=== PATIENT | female | born 1970 | race Caucasian/White ===

== ENCOUNTER 2016-06-20 09:50 | Emergency (ER) | payer OTHER ==
--- NOTE | 2016-06-20 15:05 | ED CLINICAL REPORT ---
Clinical Report - Physicians/Mid Levels [facility] [address] [place] [address] 06/20/2016 9:51 Patient: AUTUMN RIVERA Time Seen: 10:02; initial patient contact. Arrived- By private vehicle. Historian- patient. HISTORY OF PRESENT ILLNESS Chief Complaint: DIZZINESS and NEAR-SYNCOPE. Described as a sense of rotation and feeling off balance and light-headed. Severity described as moderate at its maximum. When seen in the E.D., it was almost gone. Modifying factors- worsened by standing up and changing position. Relieved by rest. This started yesterday and is still present (persistent). It has been intermittent. No nausea, vomiting, hearing loss, tinnitus or ear pain. Similar symptoms previously: None. Recent medical care: The patient was seen recently in a clinic. ( For Bronchitis). REVIEW OF SYSTEMS No headache, double vision, weakness, fainting episodes or head injury. No chest pain, palpitations, fever, difficulty breathing or chills. She has had difficulty walking. All systems otherwise negative, except as recorded above. PAST HISTORY ( Cirrhosis). Additional Surgeries: no known surgeries. Medications: Spironolactone Oral. Furosemide Oral. Lyrica Oral. Allergies: Codeine. Contrast. Motrin. SOCIAL HISTORY Current every day smoker. Alcohol use. Patient is a recovering alcoholic. History of drug use: marijuana. ADDITIONAL NOTES The nursing notes have been reviewed with agreement regarding the chief complaint, PMH and patient medications and allergies. PHYSICAL EXAM Vital Signs: 06/20/2016 09:58 BP: 102/48. HR: 81. RR: 18. O2 saturation: 100%. Temp: 98.2 F. Have been reviewed. Hypotensive. Postural vitals abnormal. Heart rate normal. Respiratory rate normal. Temperature normal. Oxygen saturation normal. Appearance: Alert. No acute distress. Eyes: Pupils equal, round and reactive to light. No nystagmus. Extraocular movements normal. ENT: Normal ENT inspection. Moist mucous membranes. CVS: Normal heart rate and rhythm. Heart sounds normal. Respiratory: No respiratory distress. Breath sounds normal. Skin: Skin warm and dry. Normal skin color. No rash. Normal skin turgor. Extremities: Extremities exhibit normal ROM. No calf tenderness. No lower extremity edema. Neuro: Alert. Oriented X 3. Mood/affect normal. Speech normal. Cranial nerves normal (as tested). No cerebellar findings. No motor deficit. No sensory deficit. LABS, X-RAYS, AND EKG Laboratory Tests: UA-Culture if indicated: (HELGA: 06/20/2016 10:50) ( [facility] 11[facility]17) Final results Test Result Flag Units (Reference) URINE COLOR YELLOW URINE APPEARANCE CLEAR URINE GLUCOSE TRACE (NEGATIVE) URINE BILIRUBIN NEGATIVE (NEGATIVE) URINE KETONE NEGATIVE (NEGATIVE) URINE SPECIFIC GRAVITY <= 1.005 L (1.010-1.030) URINE PH 7.0 (5.0-8.0) URINE PROTEIN NEGATIVE (NEGATIVE) URINE UROBILINOGEN 0.2 EU/dL (0.2-1.0) URINE NITRITE NEGATIVE (NEGATIVE) URINE BLOOD NEGATIVE (NEGATIVE) URINE LEUK ESTERASE NEGATIVE (NEGATIVE) URINE RBC RARE rbc/hpf (0-1) URINE WBC RARE wbc/hpf (0-1) URINE EPITHELIAL CELLS 1-3 EPI/hpf (0-5) URINE BACTERIA TRACE (<1+) (NONE SEEN) URINE COMMENT CULT NOT INDICATED URINE CULTURES ARE SET-UP BASED ON THE FOLLOWING CRITERIA:POSITIVE NITRITEPOSITIVE LEUKOCYTE ESTERASEGREATER THAN 10 WHITE BLOOD CELLSMODERATE (2+) OR GREATER BACTERIA Urine: (HELGA: 06/20/2016 10:50) ( [facility] 11:13) Final results Test Result Flag Units (Reference) URINE NEGATIVE CBC w Diff: (HELGA: 06/20/2016 10:30) ( [facility] 06/20/2016 10:51) Final results Test Result Flag Units (Reference) WHITE BLOOD COUNT 10.1 K/uL (4.5-11.5) RED BLOOD COUNT 4.66 M/uL (4.00-5.20) HEMOGLOBIN 14.7 gm/dL (12.0-16.0) HEMATOCRIT 43.7 % (36.0-46.0) MEAN CELL VOLUME 94 fL (80-100) MEAN CORPUSCULAR HGB 32 pg (26-34) MEAN CORPUSCULAR HGB CONC 34 g/dL (31-37) RED CELL DISTRIBUTION WIDTH 12.8 % (11.6-14.8) PLATELET COUNT 178 K/uL (150-400) LYMPH % 21.6 L % (25-40) MONO % 3.1 % (3-14) GRANULOCYTE % 75.3 (53-90) Urine Drug Screen: (HELGA: 06/20/2016 10:50) ( [facility] 06/20/2016 11:29) Final results Test Result Flag Units (Reference) AMPHETAMINE/METHAMPHETAMINE NEGATIVE (NEGATIVE) BARBITURATE NEGATIVE (NEGATIVE) BENZODIAZEPINE NEGATIVE (NEGATIVE) CANNABINOID NEGATIVE (NEGATIVE) COCAINE NEGATIVE (NEGATIVE) ECSTASY NEGATIVE (NEGATIVE) METHADONE NEGATIVE (NEGATIVE) OPIATE NEGATIVE (NEGATIVE) The urine drug screen is a qualitative screening test fordrug overdose and abuse. All screen results should beconsidered as presumptive.Drugs screened for are as follows:BenzodiazepinesCocaineAmphetamines/MetamphetaminesTHC (Tetrahydrocannabinol)OpiatesBarbituratesEcstasyMethadonePositive results are unconfirmed. For confirmation, notifythe lab for the specimen to be sent to the reference lab.All confirmations must be performed by a differentmethodology.The ingestion of natural herbal and plant productscontaining Ephedra/Ephedra metabolites can produce in urineone or more substances capable of cross reacting withamphetamine/methamphetamine immunoassays. These testsprovide a preliminary result only. A more specificalternative chemical method must be used to obtain aconfirmed analytical result. BNP: (HELGA: 06/20/2016 10:30) ( Msg[facility]cv[facility] 06/20/2016 11:13) Final results Test Result Flag Units (Reference) B-TYPE NATRIURETIC PEPTIDE 5.7 pg/ml (5-100) CMP: (HELGA: 06/20/2016 10:30) ( MsgRcvd 06/20/2016 11:09) Final results Test Result Flag Units (Reference) GLUCOSE 154 H mg/dL (70-110) BUN 10 mg/dL (7-18) CREATININE 0.7 mg/dL (0.6-1.3) Estimated GFR >60 mL/min Estimated GFR- >60 mL/min Note: Persistent reduction over 3 months in eGFR<60 mL/min/1.73 m2 defines CKD. Patients with eGFR values>=60 mL/min/1.73 m2 may also have CKD if evidence ofpersistent proteinuria. Additional information may be foundat www.kidney.org. SODIUM 140 mmol/L (136-145) POTASSIUM 3.5 mmol/L (3.5-5.1) CHLORIDE 103 mmol/L (98-107) CARBON DIOXIDE 26 mmol/L (21-32) CALCIUM 9.0 mg/dL (8.5-10.1) TOTAL PROTEIN 7.2 g/dL (6.4-8.2) ALBUMIN 3.9 g/dL (3.3-5.0) BILIRUBIN, TOTAL 0.7 mg/dL (0.0-1.0) ALKALINE PHOSPHATASE 68 U/L (46-116) AST (SGOT) 19 U/L (15-37) ALT (SGPT) 31 U/L (12-78) . PROGRESS AND PROCEDURES Course of Care: Evaluation after multiple exams and IV fluids. The patient's symptoms are now gone. Physical exam findings are improved. Disposition: Discharged home in good and improved condition. Condition: good. CLINICAL IMPRESSION Postural hypotension. INSTRUCTIONS Your Current Medications: CHANGE THE FOLLOWING MEDICATIONS TO: Furosemide Oral : 40 mg daily, Re-start tomorrow, 1/2 tab. Spironolactone Oral : 100 mg daily, Re-start tomorrow, 1/2 tab. CONTINUE TAKING THE FOLLOWING MEDICATIONS: Lyrica Oral : 450mg daily. Follow-up: Follow up with your doctor in about two days. Call for an appointment. Blood pressure screening was not performed during this visit because the patient has an active diagnosis of hypertension. (Electronically signed by Jaciel Ch Dr. 06/20/2016 15:11)
--- NOTE | 2016-06-20 15:05 | ED ORDER SUMMARY ---
..... Patient: AUTUMN RIVERA OrderSheet [facility] VisitID: [id number] [address] [place] [address] 45y, F Registration Date/Time: 06/20/2016 ORDER SHEET Weight: 67.1 kg (stated) Allergies: Contrast, Motrin, Codeine GENERAL ORDERS: CBC w Diff Urgent (10:06/20/2016 Kristofer Varner) (Ack 10:27 LNations ER Tech1) (10:59 JSanders R.N.) CMP Urgent (10:06/20/2016 Kristofer Varner) (Ack 10:27 LNations ER Tech1) (10:59 JSanders R.N.) UA-Culture if indicated Urgent (10:06/20/2016 Kristofer Varner) (Ack 10:27 LNations ER Tech1) (10:59 JSanders R.N.) Urine Urgent (10:06/20/2016 Kristofer Varner) (Ack 10:27 LNations ER Tech1) (10:59 JSanders R.N.) Urine Drug Screen Urgent (10:06/20/2016 Kristofer Varner) (Ack 10:27 LNations ER Tech1) (10:59 JSanders R.N.) BNP Urgent (10:06/20/2016 Kristofer Varner) (Ack 10:28 LNations ER Tech1) (10:59 JSanders R.N.) MEDICATION ORDERS: IV FLUIDS: IV Saline Lock (10:06/20/2016 Kristofer Varner) (Ack 10:27 JBoardley R.N.) (10:39 JSanders R.N.) IV NS : initial bolus none -, then 1000 mL/hr for X1 (NOW) (11:18 06/20/2016 Kristofer Varner) (Ack 11:28 JBoardley R.N.) (11:44 JSanders R.N.) IV NS : initial bolus none -, then 1000 mL/hr for X1 (NOW); Routine (13:30 06/20/2016 Brunilda R.N. verbal order read back to Kristofer Varner) (13:31 Brunilda Whitaker) ORDER SHEET NOTES: [Electronically signed by Jaciel Ch Dr. (15:11 06/20/2016)] [Electronically signed by Tristan Quintero R.N. (15:53 06/20/2016)] [Electronically locked/signed by Tristan Quintero R.N. (15:53 06/20/2016)]
--- NOTE | 2016-06-20 15:05 | ED NURSING NOTES ---
Clinical Report - Nurses [facility] [address] [place] [address] 06/20/2016 9:51 Patient: AUTUMN RIVERA TRIAGE Triage time 09:58. Acuity: LEVEL 3. Chief Complaint: DIZZINESS. 09:59 06/20/16. 09:59 06/20/16. Alert. No acute distress. ( Pt states she feels dizzy and sore. Pt was seen at [facility] last week for CT scan of liver. Pt states she had an allergic reaction to the contrast. Pt was recently dx with bronchitis and finished her Z-pack yesterday). SRINIVASAN COMA SCORE: [place] Coma Scale: 15- eyes open spontaneously (4); best verbal response- oriented x 4 (5); best motor response- obeys commands (6). --10:03 Tristan Quintero R.N. 09:58 06/20/16. BP: 102/48. HR: 81. RR: 18. O2 saturation: 100% on room air. Temp: 98.2 F (oral). --10:03 Tristan Quintero R.N. SEPSIS SCREEN: Sepsis Screen. Negative (no infection suspected/documented). --10:05 Tristan Quintero R.N. Weight: 67.1 kg stated. Height/Length: 61 inches Per Patient. BMI: 28. --09:58 Tristan Quintero R.N. Medications Lyrica Oral 450mg, daily. --10:02 Tristan Quintero R.N. Furosemide Oral 40 mg, daily. --10:02 Tristan Quintero R.N. Spironolactone Oral 100 mg, daily. --10:02 Tristan Quintero R.N. The following entry was struck and corrected by Tristan Quintero R.N., 12:00 (06/20/16) Reason for correction - other(correction). <<STRICKEN ENTRY-- Lyrica Oral. --10:02 Boardley, Tristan, R.N. --END STRIKE>> The following entry was struck and corrected by Tristan Quintero R.N., 12:00 (06/20/16) Reason for correction - other(correction). <<STRICKEN ENTRY-- Spironolactone Oral. --10:02 Tristan Quintero R.N. --END STRIKE>> The following entry was struck and corrected by Tristan Quintero R.N., 12:00 (06/20/16) Reason for correction - other(correction). <<STRICKEN ENTRY-- Furosemide Oral. --10:02 Tristan Quintero R.N. --END STRIKE>>. Medication/allergy information source: the patient. --10:03 Tristan Quintero R.N. Allergies Contrast. --10:03 Tristan Quintero R.N. Motrin. --10:03 Tristan Quintero R.N. Codeine. --10:03 Tristan Quintero R.N. History Arrived by private vehicle. Historian: patient. Unaccompanied. Primary physician (ANNELISE ROMEO). 09:59 06/20/16. 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 PAST MEDICAL HX: Immunizations: up-to-date. Last normal menstrual period- "I don't have one I'm on Mirana". SOCIAL HX: Current every day light tobacco smoker (cigarette)- less than 1/2 a pack per day. Alcohol use. Patient is a recovering alcoholic. History of occasional drug use: marijuana. No infectious disease exposure. ABUSE ASSESSMENT: No report of abuse. FALL RISK ASSESSMENT: Fall risk assessment completed. No fall risk identified. NUTRITIONAL RISK ASSESSMENT: The nutritional risk assessment revealed no deficiencies. FUNCTIONAL ASSESSMENT: Functional assessment: no impairments noted. LEARNING NEEDS ASSESSMENT: The learning needs assessment revealed no barriers. SKIN INTEGRITY ASSESSMENT: Skin integrity risk assessment completed. No skin integrity risk identified. --10:03 Tristan Quintero R.N. Onset. (). --10:04 Tristan Quintero R.N. PROBLEMS: Cirrhosis. --10:03 Tristan Quintero R.N. ADDITIONAL SURGERIES: no known surgeries. Assessment 09:59 06/20/16. --10:03 Tristan Quintero R.N. Interventions 09:59 06/20/16. 09:59 06/20/16. ID and allergy band on patient. To treatment room. --10:03 Tristan Quintero R.N. PHYSICAL ASSESSMENT 10:04 06/20/16. GENERAL / NEURO / PSYCH: Alert. Oriented X 4. Appears in no acute distress. [place] Coma Scale: 15- eyes open spontaneously (4); best verbal response- oriented x 4 (5); best motor response- obeys commands (6). No cerebellar findings. Moves all extremities equally. No motor deficit. No sensory deficit. RESPIRATORY: Respirations not labored. CVS: Normal sinus rhythm noted. SKIN: Skin is warm and dry. --10:04 Tristan Quintero R.N. NURSING PROGRESS NOTES 10:06/20/16. The plan of care for this patient has been created. radiation monitor, pulse oximeter and NIBP monitor placed on patient; monitor alarms on. Patient gowned. Head of bed elevated. Reassurance given. Two patient identifiers checked. Call light placed in reach. Side rails up x 2. Bed placed in lowest position. Brakes of bed on. Brakes of chair on. --10:04 Tristan Quintero R.N. 10:06/20/16. Patient ready for evaluation- chart flagged and notification provided. --10:04 Tristan Quintero R.N. 10:34 06/20/2016 Site #1 started via IV in the right antecubital space with an 20g angiocath, with aseptic technique and good blood return; one attempt. Blood drawn: rainbow set. Labeled in the presence of the patient and sent to the lab. Saline lock flushed with 10 mL saline. --10:39 Shannon Dumont R.N. 10:42 06/20/16. --10:42 Shannon Dumont R.N. 10:40 06/20/16. BP: 99/57 (regular adult cuff) taken on the left arm, via an automated monitor, while lying. HR: 70. O2 saturation: 100% on room air. --10:42 Shannon Dumont R.N. 10:42 06/20/16. BP: 96/63 (regular adult cuff) taken on the left arm, while sitting. HR: 74. O2 saturation: 100% on room air. --10:43 Shannon Dumont R.N. 10:43 06/20/16. --10:43 Shannon Dumont R.N. 10:43 06/20/16. BP: 90/55 (regular adult cuff) taken on the left arm, while standing. HR: 88. O2 saturation: 100%. Additional comments: Patient states burred vision with standing. --10:45 Shannon Dumont R.N. 10:45 06/20/16. --10:45 Shannon Dumont R.N. 10:56 06/20/16. BP: 106/53 (regular adult cuff) taken on the left arm, while lying. HR: 76. O2 saturation: 100% on room air. --10:59 Shannon Dumont R.N. 10:58 06/20/16. Cardiac rhythm: normal sinus rhythm; (79). Patient ID band checked for patient name and birthdate: patient confirmed. Instructions provided to collect clean catch urine and patient verbalized understanding. Clean catch urine collected with return of yellow-colored clear urine; sample sent to lab for urinalysis and culture. Specimen labeled in the presence of the patient. --10:59 Shannon Dumont R.N. 10:59 06/20/16. Patient informed about reason for wait and about plan of care. --10:59 Shannon Dumont R.N. 11:03 06/20/16. ( Patient went to leave a UA in restroom and on the way back she felt dizzy and leaned against the wall to steady, used WC to bring back to room and got a set of vitals). --11:03 Shannon Dumont R.N. 11:44 06/20/2016 Started bag #1 1000 mL IV Fluids IV NS (Saline); at 999 mL/hr over 1 hour(s) via site #1 via IV pump. Allergies verified and confirmed 5 rights. IV patency established. IV site checked: no pain, redness, or swelling. IV flushed thoroughly pre- and post-medication administration. --11:44 Shannon Dumont R.N. 11:44 06/20/16. --11:44 Shannon Dumotn R.N. 11:44 06/20/16. BP: 102/57. HR: 72. RR: 16. O2 saturation: 100% on room air. --11:44 Shannon Dumont R.N. 11:59 06/20/16. BP: 101/44. HR: 73. RR: 12. O2 saturation: 100% on room air. --12:00 Tristan Quintero R.N. 12:00 06/20/16. Cardiac rhythm: normal sinus rhythm; (73). --12:00 Tristan Quintero R.N. 12:25 06/20/16. BP: 97/52. HR: 69. RR: 14. O2 saturation: 100% on room air. --12:26 Tristan Quintero R.N. 12:26 06/20/16. Cardiac rhythm: normal sinus rhythm. --12:26 Tristan Quintero R.N. 12:44 06/20/16. --12:44 Tristan Quintero R.N. 12:44 06/20/16. BP: 95/48. HR: 71. RR: 14. O2 saturation: 100% on room air. --12:44 Tristan Quintero R.N. 12:44 06/20/2016 IV Fluids IV NS Discontinued: bag #1 infused. Total amount infused: 1000 mL. IV patency established. IV site checked: no pain, redness, or swelling. IV flushed thoroughly. --12:44 Tristan Quintero R.N. 12:44 06/20/16. Cardiac rhythm: normal sinus rhythm; (71). --12:44 Tristan Quintero R.N. 12:47 06/20/16. Patient informed about reason for wait and about plan of care. --12:47 Tristan Quintero R.N. 12:47 06/20/16. ED physician notified about patient's status. --12:47 Tristan Quintero R.N. 13:03 06/20/16. BP: 99/48. HR: 84. RR: 12. O2 saturation: 100% on room air. --13:04 Tristan Quintero R.N. 13:04 06/20/16. Cardiac rhythm: normal sinus rhythm. --13:04 Tristan Quintero R.N. 13:31 06/20/2016 Started bag #1 1000 mL IV Fluids IV NS (Saline); at 1000 mL/hr over 1 hour(s) via site #1. Allergies verified and confirmed 5 rights. IV patency established. IV site checked: no pain, redness, or swelling. IV flushed thoroughly pre- and post-medication administration. Completed per protocol. --13:31 Tristan Quintero R.N. 14:04 06/20/16. ( patient reports bilat thigh pain, burning sensation 10/21 that has now gone away.). --14:04 Shannon Dumont R.N. 13:58 06/20/16. BP: 91/77. HR: 84. O2 saturation: 99% on room air. --14:04 Shannon Dumont R.N. 14:17 06/20/16. BP: 89/54. HR: 80. RR: 14. O2 saturation: 100% on room air. --14:17 Marva Ohara ( assisted pt. sitting on edge of bed and standing . Pt. states is not dizzy.). --15:11 Maria Victoria Phan ER Tech 14:59 06/20/2016 IV Fluids IV NS Discontinued: bag #2 infused. Total amount infused: 1000 mL. IV patency established. IV site checked: no pain, redness, or swelling. IV flushed thoroughly. --15:24 Tristan Quintero R.N. DISPOSITION / DISCHARGE 15:24 06/20/2016 Site #1 removed upon discharge. Catheter intact. --15:24 Tristan Quintero R.N. 15:25 06/20/16. Condition at departure: improved. The goals identified in the patient's plan of care were met. No learning barriers present. Discharge instructions provided and reviewed with the patient. Reviewed warnings. Reviewed medication(s). Treatments reviewed. Patient verbalized understanding. Written instructions provided in German. The patient was discharged by the physician. She was discharged home and accompanied by family. She left the Emergency Department ambulatory and via private vehicle. Family member driving. FALL RISK ASSESSMENT: Fall risk assessment completed. No fall risk identified. --15:25 Tristan Quintero R.N. 15:24 06/20/16. BP: 100/72. HR: 80. RR: 14. O2 saturation: 99%. Temp: 98.2 F (oral). --15:25 Tristan Quintero R.N. 15:26 06/20/16. Departure time: 15:26. --15:26 Tristan Quintero R.N. Locked/Released at 06/20/2016 15:53 by Tristan Quintero R.N.
--- NOTE | 2016-06-20 15:05 | ED ORDER SUMMARY ---
..... Patient: AUTUMN RIVERA OrderSheet [facility] VisitID: [id number] [address] [place] [address] 45y, F Registration Date/Time: 06/20/2016 ORDER SHEET Weight: 67.1 kg (stated) Allergies: Contrast, Motrin, Codeine GENERAL ORDERS: CBC w Diff Urgent (10:06/20/2016 Kristofer Varner) (Ack 10:27 LNations ER Tech1) (10:59 JSanders R.N.) CMP Urgent (10:06/20/2016 Kristofer Varner) (Ack 10:27 LNations ER Tech1) (10:59 JSanders R.N.) UA-Culture if indicated Urgent (10:06/20/2016 Kristofer Varner) (Ack 10:27 LNations ER Tech1) (10:59 JSanders R.N.) Urine Urgent (10:06/20/2016 Kristofer Varner) (Ack 10:27 LNations ER Tech1) (10:59 JSanders R.N.) Urine Drug Screen Urgent (10:06/20/2016 Kristofer Varner) (Ack 10:27 LNations ER Tech1) (10:59 JSanders R.N.) BNP Urgent (10:06/20/2016 Kristofer Varner) (Ack 10:28 LNations ER Tech1) (10:59 JSanders R.N.) MEDICATION ORDERS: IV FLUIDS: IV Saline Lock (10:06/20/2016 Kristofer Varner) (Ack 10:27 JBoardley R.N.) (10:39 JSanders R.N.) IV NS : initial bolus none -, then 1000 mL/hr for X1 (NOW) (11:18 06/20/2016 Kristofer Varner) (Ack 11:28 JBoardley R.N.) (11:44 JSanders R.N.) IV NS : initial bolus none -, then 1000 mL/hr for X1 (NOW); Routine (13:30 06/20/2016 Brunilda R.N. verbal order read back to Kristofer Varner) (13:31 Brunilda Whitaker) ORDER SHEET NOTES: [Electronically signed by Jaciel Ch Dr. (15:11 06/20/2016)] [Electronically signed by Tristan Quintero R.N. (15:53 06/20/2016)] [Electronically locked/signed by Tristan Quintero R.N. (15:53 06/20/2016)]
--- NOTE | 2016-06-20 15:53 | ED MED RECONCILIATION SUMMARY ---
Patient: AUTUMN RIVERA Medication Reconciliation Report [facility] VisitID: [id number] [address] [place] [address] 45y, F Registration Date/Time: 06/20/2016 Weight: 67.1 kg Height/Length: 61 in. BMI: 28.0 ALLERGIES: Codeine, Contrast, Motrin The patient's Home Medications are listed below: CHANGE THE FOLLOWING MEDICATIONS TO: Furosemide Oral : 40 mg daily, Re-start tomorrow, 1/2 tab Spironolactone Oral : 100 mg daily, Re-start tomorrow, 1/2 tab CONTINUE TAKING THE FOLLOWING MEDICATIONS: Lyrica Oral 450mg, daily The source(s) of the original Home Medication information: patient The following Medications were given to the patient in the Emergency Department: IV NS IV Fluids bolus 0, then 999 mL/hr, administered: 06/20/2016 11:44:00 AM IV NS IV Fluids bolus 0, then 1000 mL/hr, administered: 06/20/2016 1:31:00 PM The following Medications were prescribed to the patient: None.
--- NOTE | 2016-06-20 15:53 | ED MED RECONCILIATION SUMMARY ---
Patient: AUTUMN RIVERA Medication Reconciliation Report [facility] VisitID: [id number] [address] [place] [address] 45y, F Registration Date/Time: 06/20/2016 Weight: 67.1 kg Height/Length: 61 in. BMI: 28.0 ALLERGIES: Codeine, Contrast, Motrin The patient's Home Medications are listed below: CHANGE THE FOLLOWING MEDICATIONS TO: Furosemide Oral : 40 mg daily, Re-start tomorrow, 1/2 tab Spironolactone Oral : 100 mg daily, Re-start tomorrow, 1/2 tab CONTINUE TAKING THE FOLLOWING MEDICATIONS: Lyrica Oral 450mg, daily The source(s) of the original Home Medication information: patient The following Medications were given to the patient in the Emergency Department: IV NS IV Fluids bolus 0, then 999 mL/hr, administered: 06/20/2016 11:44:00 AM IV NS IV Fluids bolus 0, then 1000 mL/hr, administered: 06/20/2016 1:31:00 PM The following Medications were prescribed to the patient: None.
--- NOTE | 2016-06-20 15:53 | ED MAR SUMMARY ---
..... Medication Administration Record [facility] [address] [place] [address] Patient: AUTUMN RIVERA Visit ID: [id number] 45y, F Weight: 67.1 kg Height/Length: 61 in BMI: 28 ALLERGIES: Codeine, Motrin, Contrast Start 11:44 06/20/2016 Shannon Dumont R.N., Stop 12:44 06/20/2016 Tristan Quintero R.N. Medication Administered: IV NS (SALINE), Dose: IV Fluids over 1 hour(s), Rate: 999 mL/hr, Dispensed: 1000 mL bag, Site: #1 right AC. Medication Ordered: IV NS : initial bolus none -, then 1000 mL/hr for X1 (NOW). Start 13:31 06/20/2016 Tristan Quintero R.N., Stop 14:59 06/20/2016 Tristan Quintero R.N. Medication Administered: IV NS (SALINE), Dose: IV Fluids over 1 hour(s), Rate: 1000 mL/hr, Dispensed: 1000 mL bag, Site: #1 right AC. Medication Ordered: IV NS : initial bolus none -, then 1000 mL/hr for X1 (NOW); Routine.
--- NOTE | 2016-06-20 15:53 | ED MAR SUMMARY ---
..... Medication Administration Record [facility] [address] [place] [address] Patient: AUTUMN RIVERA Visit ID: [id number] 45y, F Weight: 67.1 kg Height/Length: 61 in BMI: 28 ALLERGIES: Codeine, Motrin, Contrast Start 11:44 06/20/2016 Shannon Dumont R.N., Stop 12:44 06/20/2016 Tristan Quintero R.N. Medication Administered: IV NS (SALINE), Dose: IV Fluids over 1 hour(s), Rate: 999 mL/hr, Dispensed: 1000 mL bag, Site: #1 right AC. Medication Ordered: IV NS : initial bolus none -, then 1000 mL/hr for X1 (NOW). Start 13:31 06/20/2016 Tristan Quintero R.N., Stop 14:59 06/20/2016 Tristan Quintero R.N. Medication Administered: IV NS (SALINE), Dose: IV Fluids over 1 hour(s), Rate: 1000 mL/hr, Dispensed: 1000 mL bag, Site: #1 right AC. Medication Ordered: IV NS : initial bolus none -, then 1000 mL/hr for X1 (NOW); Routine.
--- NOTE | 2016-06-20 15:53 | ED DISCHARGE INSTRUCTIONS ---
Patient: AUTUMN RIVERA General Instructions [facility] VisitID: [id number] [address] [place] [address] 45y, F Registration Date/Time: 06/20/2016 Postural hypotension. INSTRUCTIONS Your Current Medications: CHANGE THE FOLLOWING MEDICATIONS TO: Furosemide Oral : 40 mg daily, Re-start tomorrow, 1/2 tab. Spironolactone Oral : 100 mg daily, Re-start tomorrow, 1/2 tab. CONTINUE TAKING THE FOLLOWING MEDICATIONS: Lyrica Oral : 450mg daily. Follow-up: Follow up with your doctor in about two days. Call for an appointment. Blood pressure screening was not performed during this visit because the patient has an active diagnosis of hypertension. ADDITIONAL INFORMATION Orthostatic Hypotension The normal blood pressure range is between 90/60and 140/80. Low blood pressure (also calledhypotension) is a decrease in blood pressure from what is normal for you. Orthostatic hypotensionis a type of low blood pressure that occurs only when changing body position from lying to standing. It can cause symptoms of dizziness, lightheadedness or fainting. Some of the causesof orthostatic hypotension are: Certain medicines, including: High blood pressure medicines Diuretics (water pills) Some heart medicines Some antidepressants Pain, anxiety, sedative, and sleeping medicines Dehydration (from vomiting, diarrhea, or poor fluid intake) Severe infection, high fever Blood loss (for example, bleeding from the stomach or intestines) Treatment will depend on the cause of your low blood pressure. Home Care: Rest until symptoms improve. Change positions slowly from lying to standing.When getting out of bed, sit on the side of the bed with your legs down for at least 30 seconds before standing. This gives your body time to adjust to the position change. Follow the treatment plan described by your physician. Follow Up with your doctor or as advised by our staff. Get Prompt Medical Attention if any of the following occur: Dizziness, lightheadedness or fainting Black or red color in your stools or vomit Persistent diarrhea or vomiting Inability to eat or drink Fever of 100.4F (38C) or higher, or as directed by your healthcare provider Urinary burning or foul-smelling urine You have been given the following additional information: Hypotension, Orthostatic (Electronically signed by Jaciel Ch Dr. 06/20/2016 15:11)
== END 2016-06-20 15:26 | disposition home or self-care (01) ==
LOC: ED SRH 09:50
DX: I95.1 Orthostatic hypotension (principal); F17.210 Nicotine dependence, cigarettes, uncomplicated; Z91.041 Radiographic dye allergy status; Z88.5 Allergy status to narcotic agent; Z88.6 Allergy status to analgesic agent
CPT/HCPCS: 90004; 90100; 91320; 92760; 92761; 92762; 92763; 92764; 92765; 92766; 92767; 93070; 95059